=== PATIENT | male | born 1955 | race Caucasian/White ===

== ENCOUNTER 2016-06-19 10:29 | Emergency (ER) | payer MEDICAID ==
[2016-06-19] MEDS ORDERED: Ketorolac 30 MG/ML SDV IM ONE (10:45)
[2016-06-19] MEDS ORDERED: methylPREDNISolone Sodium Succinate 125 MG/2 ML SDV IM ONE (10:46)
[2016-06-19 11:32] VITALS: BP 141/67
[2016-06-19] MEDS ORDERED: HYDROmorphone 1 MG/ML Syringe IM ONE (11:37)
--- NOTE | 2016-06-19 12:41 | ER ---
SUBJECTIVE: The patient is a 61-year-old male, large male, somewhat obese, who comes in with nonspecific low back pain. He cannot recall any event of trauma, falling, no assault, no heavy lifting, no abnormal lifting, no abnormal twisting. He does run a skid stairs sometimes. He states the other day, he did recall catching his foot on something on the ground and almost tripping, and he caught himself, but he never did fall, and he is not sure whether that could have contributed or not. No recent illness. No fevers, nausea, vomiting. No ENT issues, neck pain or stiffness, chest pain, shortness of breath, abdominal pain. No bowel or bladder changes or bleeding. No numbness or weakness down his legs. The pain is just in the low back area. PAST MEDICAL HISTORY: Significant for: 1. Gout. 2. Hypertension. 3. Previous myofascial strains, and he did have some old Robaxin. CURRENT MEDICATIONS: Include: 1. Allopurinol 300 mg p.o. daily. 2. Lisinopril 20 mg p.o. daily. 3. Methocarbamol 1000 mg q.8 hours p.r.n., this was from a previous prescription that he had years ago and he had some left over. 4. He has taken naproxen 1 tablet p.o. b.i.d. 5. Vitamin E 400 units p.o. daily. ALLERGIES: He denies being allergic to medications. SOCIAL HISTORY: He works in the farming market. He does use skid stairs sometimes. REVIEW OF SYSTEMS: No fever or chills. No recent illness. No assault, trauma, falls. No lower extremity weakness or numbness. No bowel or bladder changes. No perineal numbness. No bleeding. No chest pain, shortness of breath, neck pain, or ENT issues. Please see HPI. OBJECTIVE: Vital Signs: His height is 1.85 m. His weight is 136 kg. He is afebrile. Blood pressure is 186/92, respiratory rate 16, oxygen 100% on room air. General: Pleasant, interactive, a good historian. He is a large male, large- framed, he has a large ABD. No respiratory distress. He does ambulate into the emergency room. At the time of exam, he is sitting on the edge of the exam table. HEENT: Normocephalic and atraumatic. Abdomen: Soft, obese, and benign. Back: No bony tenderness. No signs of trauma. He does have bilateral myofascial and paraspinous muscle tenderness. While sitting there, I did lift each leg singly, he tolerates the leg being lifted fairly well, but then it begins to pull on his back and his hamstring, and he wishes to go no further. No calf tenderness. No compartment syndrome. No signs of DVT. EMERGENCY ROOM COURSE: He was given injection of Toradol and Solu-Medrol, this did not give much immediate help, and he was then given an injection of Dilaudid 1 mg IM, this did begin to help. He remained stable and improved. ASSESSMENT: Acute myofascial/paraspinous muscle strain sprain of low back. PLAN: A prescription of Medrol Dosepak and hydrocodone was given. Continue with current muscle relaxers. Recommend take high-dose nonsteroidal anti- inflammatories per package instructions over the next 1 to 2 weeks with food. Heat, ice, Bengay, IcyHot, massage, keep active, range of motion, yoga, etc., may all help. Please follow up with PCP, return for emergent issues. [facility] /[id number]
== END 2016-06-19 12:12 | disposition home or self-care (01) ==
LOC: DL.ED 10:29
DX: S39.012A Strain of muscle, fascia and tendon of lower back, initial encounter (principal); S33.5XXA Sprain of ligaments of lumbar spine, initial encounter; M10.9 Gout, unspecified; I10 Essential (primary) hypertension; X58.XXXA Exposure to other specified factors, initial encounter
CPT/HCPCS: 96372; 99283; J1170; J1885; J2930

== ENCOUNTER 2017-12-20 00:11 | Emergency (ER) | payer BC, MEDICAID ==
[2017-12-20] MEDS ORDERED: Sodium Chloride 0.9% 10 ML Syringe FLUSH PRN (00:17)
[2017-12-20] MEDS ORDERED: HYDROmorphone 0.5 MG/0.5 ML Syringe IVPUSH ONE (00:25)
[2017-12-20 00:50] LABS: CHLORIDE,CL 103 mmol/L (101-111); SODIUM,NA 136 mmol/L (135-145)
--- NOTE | 2017-12-20 00:57 | EDM.PDOC ---
ED HPI GENERAL MEDICAL PROBLEM - General Chief Complaint: Chest Pain Stated Complaint: L SIDE SHOULDER/CHEST PAIN [id number] Time Seen by Provider: 12/20/17 00:26 Source of Information: Reports: Patient, RN, RN Notes Reviewed History Limitations: Reports: No Limitations - History of Present Illness INITIAL COMMENTS - FREE TEXT/NARRATIVE: Pt to ER with c/o left sided chest wall and rib pain, radiating into the left shoulder. Pt states it is painful to take a breath or move. He states he is unable to lay back, as it feels better to sit up. Patient denies injury to the area. Patient denies N/V/D, fever or chills. Patient rates the pain 7/10. Patient states he has "jolts" or spasms of pain. Onset: Today, Sudden Left Chest Pain Score (Numeric/FACES): 9 - Related Data Allergies Allergy/AdvReac Type Severity Reaction Status Date / Time No Known Allergies Allergy Verified 06/19/16 10:38 Home Meds: Home Meds Lisinopril 20 mg PO DAILY 06/19/16 [History] Naproxen Sodium [Aleve] 1 tab PO BID 06/19/16 [History] metFORMIN [Glucophage] 500 mg PO DAILY 12/20/17 [History] Past Medical History HEENT History: Reports: Impaired Vision Cardiovascular History: Reports: Hypertension Endocrine/Metabolic History: Reports: Diabetes, Type II Social & Family History - Tobacco Use Smoking Status *Q: Never Smoker - Caffeine Use Caffeine Use: Reports: Coffee, Soda - Recreational Drug Use Recreational Drug Use: No ED ROS GENERAL - Review of Systems Review Of Systems: ROS reveals no pertinent complaints other than HPI. ED EXAM, GENERAL - Physical Exam Exam: See Below Exam Limited By: No Limitations General Appearance: Alert, WD/WN, Moderate Distress Eye Exam: Bilateral Eye: Normal Inspection Ears: Normal External Exam, Hearing Grossly Normal Nose: Normal Inspection Throat/Mouth: Normal Inspection, Normal Voice, No Airway Compromise Head: Atraumatic, Normocephalic Neck: Normal Inspection, Full Range of Motion Respiratory/Chest: Lungs Clear, Decreased Breath Sounds, Splinting. No: Chest Non-Tender Cardiovascular: Normal Peripheral Pulses, Regular Rate, Rhythm, No Edema, No Gallop, No JVD, No Murmur, No Rub Peripheral Pulses: 2+: Radial (L), Radial (R) GI/Abdominal: Normal Bowel Sounds, Soft, Non-Tender (Male) Exam: Deferred Rectal (Males) Exam: Deferred Back Exam: Normal Inspection, Decreased Range of Motion. No: CVA Tenderness (L) , CVA Tenderness (R) Extremities: Normal Inspection, Non-Tender, No Pedal Edema, Normal Capillary Refill, Limited Range of Motion Neurological: Alert, Oriented, CN II-XII Intact, Normal Cognition, Normal Gait, Normal Reflexes, No Motor/Sensory Deficits Psychiatric: Anxious Skin Exam: Warm, Dry, Intact, Normal Color, No Rash Lymphatic: No Adenopathy EKG INTERPRETATION EKG Date: 12/20/17 Time: 00:35 Rhythm: Other (sinus tachycardia) Rate (Beats/Min): 108 [place]: Normal P-Wave: Present QRS: Normal ST-T: Normal QT: Normal Comparison: No Change Course - Vital Signs Last Recorded V/S: Last Vital Signs Temp 96 F 12/20/17 02:01 Pulse 94 12/20/17 02:01 Resp 22 H 12/20/17 02:01 BP 113/62 12/20/17 02:01 Pulse Ox 98 12/20/17 02:01 - Orders/Labs/Meds Orders: Active Orders 24 hr Category Date Time Status EKG Documentation Completion [RC] STAT Care 12/20/17 00:18 Active Peripheral IV Care [RC] . DIRECTED Care 12/20/17 00:18 Active Chest 1V Frontal [CR] Stat Exams 12/20/17 00:25 Taken Peripheral IV Insertion Adult [OM.PC] Stat Oth 12/20/17 00:17 Ordered Labs: Laboratory Tests 12/20/17 12/20/17 Range/Units 00:22 00:22 WBC 11.8 H (5.0-10.0) 10^3/uL RBC 4.71 (4.6-6.2) 10^6/uL Hgb 14.3 (14.0-18.0) g/dL Hct 43.0 (40.0-54.0) % MCV 91.3 D (80-100) fL MCH 30.4 (27.0-34.0) pg MCHC 33.3 (33.0-35.0) g/dL Plt Count 170 D (150-450) 10^3/uL Neut % (Auto) 73.1 (42.2-75.2) % Lymph % (Auto) 16.5 L (20.5-50.1) % [place] % (Auto) 8.7 H (2-8) % Eos % (Auto) 1.4 (1.0-3.0) % Baso % (Auto) 0.3 (0.0-1.0) % Sodium 136 (135-145) mmol/L Potassium 4.0 (3.6-5.0) mmol/L Chloride 103 (101-111) mmol/L Carbon Dioxide 24.0 (21.0-31.0) mmol/L Anion Gap 13.0 BUN 28 H (7-18) mg/dL Creatinine 1.9 H (0.6-1.3) mg/dL Est Cr Clr Drug Dosing 45.56 mL/min Estimated GFR (MDRD) 36 BUN/Creatinine Ratio 14.73 Glucose 136 H (74-105) mg/dL Calcium 9.0 (8.4-10.2) mg/dl Total Bilirubin 0.5 (0.2-1.0) mg/dL AST 23 (10-42) IU/L ALT 34 (10-60) IU/L Alkaline Phosphatase 58 (42-121) IU/L Troponin I < 0.02 (0.00-0.02) ng/ml Total Protein 7.4 (6.7-8.2) g/dl Albumin 4.1 (3.2-5.5) g/dl Globulin 3.3 Albumin/Globulin Ratio 1.24 Meds: Medications Discontinued Medications Generic Name Dose Route Start Last Admin Trade Name Freq PRN Reason Stop Dose Admin Hydromorphone HCl 0.5 mg 12/20/17 00:25 12/20/17 00:31 Dilaudid IVPUSH 12/20/17 00:26 0.5 mg ONETIME ONE Administration Orphenadrine Citrate 60 mg 12/20/17 01:30 12/20/17 01:29 Norflex IM 60 mg Q12H MISHEL Administration Sodium Chloride 10 ml 12/20/17 00:17 Saline Flush FLUSH ASDIRECTED PRN Keep Vein Open - Radiology Interpretation Free Text/Narrative:: Chest xray: IMPRESSION: Normal chest x-ray. Thank you for allowing us to participate in the care of your patient. Dictated and Authenticated by: Bryce Arzola MD 12/20/2017 1:11 AM Central Time ([place] & [place]) See rad report Departure - Departure Time of Disposition: 02:05 Disposition: Home, Self-Care 01 Condition: Fair Clinical Impression: Muscle strain of chest wall Qualifiers: Encounter type: initial encounter Qualified Code(s): S29.011A - Strain of muscle and tendon of front wall of thorax, initial encounter Instructions: Muscle Strain, [id number], Nonspecific Chest Pain, [id number] Forms: ED Department Discharge Additional Instructions: RX: Flexeril, Diclofenac Follow up with your primary care facility Rest - My Orders Last 24 Hours: My Active Orders 12/20/17 00:17 Peripheral IV Insertion Adult [OM.PC] Stat 12/20/17 00:18 EKG Documentation Completion [RC] STAT Peripheral IV Care [RC] . DIRECTED 12/20/17 00:25 Chest 1V Frontal [CR] Stat - Assessment/Plan Last 24 Hours: My Active Orders 12/20/17 00:17 Peripheral IV Insertion Adult [OM.PC] Stat 12/20/17 00:18 EKG Documentation Completion [RC] STAT Peripheral IV Care [RC] . DIRECTED 12/20/17 00:25 Chest 1V Frontal [CR] Stat
[2017-12-20 02:01] VITALS: BP 113/62
--- NOTE | 2017-12-20 13:46 | EKG ---
12/20/2017 - NICKIE WADE - TIME: 12:35 a.m. FINDINGS: Sinus bradycardia at 108 as per my reading. MOD /[id number]
== END 2017-12-20 02:13 | disposition home or self-care (01) ==
LOC: DL.ED 00:11
DX: S29.011A Strain of muscle and tendon of front wall of thorax, initial encounter (principal); I10 Essential (primary) hypertension; E11.9 Type 2 diabetes mellitus without complications; Z79.84 Long term (current) use of oral hypoglycemic drugs; Z79.899 Other long term (current) drug therapy; X58.XXXA Exposure to other specified factors, initial encounter
CPT/HCPCS: 36415; 71045; 80053; 84484; 85025; 93005; 96372; 96374; 99285; J1170; J2360

== ENCOUNTER 2024-07-02 06:04 | Day surgery (SDC) | payer MEDICARE, BC ==
[2024-07-02] MEDS ORDERED: fentaNYL 100 MCG/2 ML SDV ONE (06:18)
[2024-07-02] MEDS ORDERED: Midazolam 1 MG/ML 2 ML SDV ONE (06:18)
[2024-07-02] MEDS: Dextrose 5%-0.45% NaCl 1,000 ML IV SCH (06:30)
[2024-07-02] MEDS: fentaNYL 100 MCG/2 ML SDV IV ONE ×3 (07:01→07:20)
[2024-07-02] MEDS: Midazolam 1 MG/ML 2 ML SDV IV ONE ×6 (07:02→07:17)
[2024-07-02 08:41] VITALS: BP 115/88; PULSE 128
== END 2024-07-02 08:49 | disposition home or self-care (01) ==
LOC: DL.ENDO 06:04
PROVIDERS: ATTEND Internal Medicine Gastroenterology
DX: K64.8 Other hemorrhoids (principal); K62.5 Hemorrhage of anus and rectum; K59.00 Constipation, unspecified
CPT/HCPCS: 45378; J2250; J3010

== ENCOUNTER 2024-12-18 01:14 | Emergency (ER) | payer MEDICARE, BC ==
[2024-12-18 01:36] VITALS: BP 123/69; PULSE 77
== END 2024-12-18 02:15 | disposition home or self-care (01) ==
LOC: DL.ED 01:14
DX: M10.9 Gout, unspecified (principal); I13.0 Hypertensive heart and chronic kidney disease with heart failure and stage 1 through stage 4 chronic kidney disease, or unspecified chronic kidney disease; I50.9 Heart failure, unspecified; E11.22 Type 2 diabetes mellitus with diabetic chronic kidney disease; N18.9 Chronic kidney disease, unspecified; E11.40 Type 2 diabetes mellitus with diabetic neuropathy, unspecified; E03.9 Hypothyroidism, unspecified; E66.9 Obesity, unspecified; Z85.46 Personal history of malignant neoplasm of prostate; Z86.16 Personal history of COVID-19; Z86.718 Personal history of other venous thrombosis and embolism; Z79.84 Long term (current) use of oral hypoglycemic drugs; Z79.899 Other long term (current) drug therapy; Z79.01 Long term (current) use of anticoagulants; Z79.890 Hormone replacement therapy; Z79.4 Long term (current) use of insulin
CPT/HCPCS: 99283; J7512